=== PATIENT | male | born 1995 | race Caucasian/White ===

== ENCOUNTER 2022-02-16 09:40 | Emergency (ER) | payer OTHER ==
[~2022-02-16] VITALS: Ht 175.3 cm; Wt 77.1 kg
[2022-02-16 10:05] VITALS: BP_SYST 142
--- NOTE | 2022-02-16 12:42 | NUR ---
left without being seen
[2022-02-16] MEDS ORDERED: BACITRACIN 1 GM OINT TP ONE (14:59)
[2022-02-16] MEDS ORDERED: AUG875 PO (15:32)
== END 2022-02-16 12:42 | disposition left against medical advice (07) ==
LOC: SED 09:40
DX: S51.852A Open bite of left forearm, initial encounter (principal); Z53.21 Procedure and treatment not carried out due to patient leaving prior to being seen by health care provider; W54.0XXA Bitten by dog, initial encounter; Y93.89 Activity, other specified; Y92.89 Other specified places as the place of occurrence of the external cause; Y99.8 Other external cause status

== ENCOUNTER 2022-02-16 14:45 | Emergency (ER) | payer OTHER ==
[~2022-02-16] VITALS: Ht 165.1 cm; Wt 68.0 kg
[2022-02-16 14:51] VITALS: BP_SYST 130
[2022-02-16] MEDS ORDERED: DIPHTH,PERTUSS(ACELL),TET VAC 0.5 ML VIAL (Tdap) I.M. ONE (15:00)
[2022-02-16] MEDS ORDERED: cefTRIAXone 1 GM in LIDOCAINE 1%, 20 ML MDV 2.1 ML IM ONE (15:00)
[2022-02-16] MEDS ORDERED: BACITRACIN 1 GM OINT TP ONE (15:00)
--- NOTE | 2022-02-16 15:02 | NUR ---
DR BALDERAS IN ROOM FOR EXAM
[2022-02-16] MEDS ORDERED: AUG875 PO (15:32)
--- NOTE | 2022-02-16 15:40 | NUR ---
Patient given written and verbal discharge instructions and verbalizes understanding. ER MD discussed with patient the results and treatment provided. Patient in stable condition. ID arm band removed. Patient educated on pain management and to follow up with PMD. Pain Scale [0]. Opportunity for questions provided and answered. Medication side effect fact sheet provided.
[2022-02-16 15:41] VITALS: BP_SYST 130
== END 2022-02-16 15:40 | disposition home or self-care (01) ==
LOC: SED 14:45
DX: S81.851A Open bite, right lower leg, initial encounter (principal); S51.852A Open bite of left forearm, initial encounter; Z79.899 Other long term (current) drug therapy; W54.0XXA Bitten by dog, initial encounter; Y93.89 Activity, other specified; Y92.89 Other specified places as the place of occurrence of the external cause; Y99.8 Other external cause status
CPT/HCPCS: 99284; 90715; 96372; 90471; J0696; J2001